=== PATIENT | female | born 1935 | race Caucasian/White ===

== ENCOUNTER 2017-07-30 03:15 | Emergency (ER) | payer OTHER ==
[~2017-07-30] VITALS: Ht 160 cm; Wt 60.0 kg
[2017-07-30 03:19] VITALS: BP 146/67; PULSE 85; RESP 16; TEMP 98.6; O2SAT 98
--- NOTE | 2017-07-30 03:38 | PD ---
HPI Chief Complaint: Syncope/Near-Syncope Time Seen by Provider: 03:29 Travel History International Travel<30 days: No Contact w/Intl Traveler<30days: No Traveled to known affect area: No History of Present Illness HPI 81-year-old female complains of laceration to the back of the head. Patient states that she got up tonight and went to the bathroom and passed out. Patient does not remember getting to the bathroom. Patient complaining of laceration to the back the head. Patient denies any visual change. Patient denies any neck pain. Patient denies shortness of breath. Patient complains of left-sided chest wall pain laterally. Patient denies abdominal pain. Patient denies any focal weakness or numbness of extremity. Patient states that she has skin abrasion to right elbow. Patient denies any elbow pain. Patient does not know her TD immunization status. PFSH Past Medical History Asthma: Yes Anxiety: Yes COPD: Yes Hypertension: Yes Renal Failure: Yes (STAGE 3) Tetanus Vaccination: Unknown Influenza Vaccination: No : 4 Para: 4 Past Surgical History Appendectomy: Yes Cholecystectomy: Yes Hysterectomy: Yes Tonsillectomy: Yes Family History Family Hypercholesterolemia: Yes Social History Alcohol Use: No Tobacco Use: No Substance Use: No Allergies-Medications (Allergen,Severity, Reaction): Coded Allergies: iodine (Verified Allergy, Unknown, Shortness of Breath, 07/30/17) Reported Meds & Prescriptions Reported Meds & Active Scripts Active Active Prescriptions or Reported Medications Unobtainable Review of Systems General / Constitutional: No: Fever Eyes: No: Visual changes HENT: No: Headaches Cardiovascular: No: Chest Pain or Discomfort Respiratory: No: Shortness of Breath Gastrointestinal: No: Abdominal Pain Genitourinary: No: Dysuria Musculoskeletal: No: Pain Skin: No Rash Neurologic: No: Weakness Psychiatric: No: Depression Endocrine: No: Polydipsia Hematologic/Lymphatic: No: Easy Bruising Physical Exam Narrative GENERAL: Well-nourished, well-developed patient. SKIN: Focused skin assessment warm/dry. HEAD: Normocephalic. Patient has 2.5 cm laceration to the occipital area of the scalp. EYES: No scleral icterus. No injection or drainage. Pupils 2 mm equal reactive. NECK: Supple, trachea midline. No JVD or lymphadenopathy. CARDIOVASCULAR: Regular rate and rhythm without murmurs, gallops, or rubs. RESPIRATORY: Breath sounds equal bilaterally. No accessory muscle use. GASTROINTESTINAL: Abdomen soft, non-tender, nondistended. MUSCULOSKELETAL: No cyanosis, or edema. Patient has abrasion lateral aspect the right elbow. No tenderness on palpation bony structure right elbow. Full range of motion the right elbow. Patient has mild tenderness on palpation left- sided chest wall laterally. No crepitus or deformity noted. BACK: Nontender without obvious deformity. No CVA tenderness. Neurologic exam: Patient is awake and alert oriented to place and person. No obvious focal neurological deficit. Data Data Last Documented VS Vital Signs Date Time Temp Pulse Resp B/P (MAP) Pulse Ox O2 Delivery O2 Flow Rate FiO2 07/30/17 05:13 07/30/17 04:53 81 16 97 Room Air 07/30/17 03:19 98.6 Orders Orders Electrocardiogram (07/30/17 03:29) Complete Blood Count With Diff (07/30/17 03:29) Basic Metabolic Panel (Bmp) (07/30/17 03:29) Prothrombin Time / Inr (Pt) (07/30/17 03:29) Act Partial Throm Time (Ptt) (07/30/17 03:29) Urinalysis - C+S If Indicated (07/30/17 03:29) Cath For Specimen (07/30/17 03:29) Chest, Single Ap (07/30/17 03:29) Ct Brain W/O Iv Contrast(Rout) (07/30/17 03:29) Iv Access Insert/Monitor (07/30/17 03:29) Ecg Monitoring (07/30/17 03:29) Oximetry (07/30/17 03:29) Labs Laboratory Tests Test 07/30/17 03:30 White Blood Count 7.4 TH/MM3 Red Blood Count 3.99 MIL/MM3 Hemoglobin 12.3 GM/DL Hematocrit 37.0 % Mean Corpuscular Volume 92.8 FL Mean Corpuscular Hemoglobin 30.8 PG Mean Corpuscular Hemoglobin Concent 33.2 % Red Cell Distribution Width 14.5 % Platelet Count 108 TH/MM3 Mean Platelet Volume 10.6 FL Neutrophils (%) (Auto) 64.4 % Lymphocytes (%) (Auto) 20.6 % Monocytes (%) (Auto) 7.8 % Eosinophils (%) (Auto) 6.9 % Basophils (%) (Auto) 0.3 % Neutrophils # (Auto) 4.8 TH/MM3 Lymphocytes # (Auto) 1.5 TH/MM3 Monocytes # (Auto) 0.6 TH/MM3 Eosinophils # (Auto) 0.5 TH/MM3 Basophils # (Auto) 0.0 TH/MM3 CBC Comment DIFF FINAL Differential Comment Prothrombin Time 10.9 SEC Prothromb Time International Ratio 1.0 RATIO Activated Partial Thromboplast Time 27.2 SEC Urine Color YELLOW Urine Turbidity HAZY Urine pH 5.0 Urine Specific [place] 1.015 Urine Protein TRACE mg/dL Urine Glucose (UA) NEG mg/dL Urine Ketones NEG mg/dL Urine Occult Blood TRACE Urine Nitrite NEG Urine Bilirubin NEG Urine Urobilinogen LESS THAN 2.0 MG/DL Urine Leukocyte Esterase NEG Urine RBC 4 /hpf Urine WBC 1 /hpf Urine Amorphous Sediment RARE Urine Hyaline Casts 3 /lpf Urine Mucus FEW /lpf Microscopic Urinalysis Comment CULT NOT INDICATED Blood Urea Nitrogen 39 MG/DL Creatinine 1.70 MG/DL Random Glucose 105 MG/DL Calcium Level 9.0 MG/DL Sodium Level 136 MEQ/L Potassium Level 4.2 MEQ/L Chloride Level 102 MEQ/L Carbon Dioxide Level 25.8 MEQ/L Anion Gap 8 MEQ/L Estimat Glomerular Filtration Rate 29 ML/MIN [facility] Medical Decision Making Medical Screen Exam Complete: Yes Emergency Medical Condition: Yes Interpretation(s) Last Impressions Head CT 07/30/17328 Signed Impressions: Service Date/Time: Sunday, July 30, 2017 03:41 - CONCLUSION: No acute intracranial abnormalities. There is scalp laceration right parietal region. Jin Pereira MD Chest X-Ray 07/30/17328 Signed Impressions: Service Date/Time: Sunday, July 30, 2017 03:46 - CONCLUSION: 1. No acute findings. Jin Pereira MD 4:54 AM. CBC within normal limit. BMP with BUN 39. Creatinine 1.7. UA negative. Differential Diagnosis Differential diagnosis including vasovagal reaction, arrhythmia, TIA, CVA, electrolyte imbalance, dehydration. Narrative Course 81-year-old female with scalp laceration and syncope. Diagnosis Primary Impression: Syncope Qualified Codes: R55 - Syncope and collapse Additional Impressions: Scalp laceration Qualified Codes: S01.01XA - Laceration without foreign body of scalp, initial encounter Chest wall contusion Qualified Codes: S20.212A - Contusion of left front wall of thorax, initial encounter Patient Instructions: General Instructions Additional Instructions: Wound care daily. Head trauma instructions given. Continue with all medications. Follow-up with personal physician. Staple removal in 7 days. Med/Other Pt SpecificInfo: No Change to Meds Scripts Tramadol (Ultram) 50 Mg Tab 50 MG PO Q6H Y for PAIN, #30 TAB 0 Refills Prov: Williams Hoskins MD 07/30/17 Disposition: 01 DISCHARGE HOME Condition: Stable Williams Hoskins MD Jul 30, 2017 03:38
--- NOTE | 2017-07-30 03:54 | RADRPT ---
EXAM DATE/TIME: 07/30/2017 03:41 [facility] COMPARISON: No previous studies available for comparison. INDICATIONS : Trauma, fall. Laceration to posterior head. RADIATION DOSE: 30.96 CTDIvol (mGy) MEDICAL HISTORY : Hypertension. Chronic obstructive pulmonary disease. Renal failure. SURGICAL HISTORY : Hysterectomy. Cholecystectomy.Appendectomy. ENCOUNTER: Initial ACUITY: 1 day PAIN SCALE: 2/10 LOCATION: cranial TECHNIQUE: Multiple contiguous axial images were obtained of the head. Using automated exposure control and adj ustment of the mA and/or kV according to patient size, radiation dose was kept as low as reasonably a chievable to obtain optimal diagnostic quality images. DICOM format image data is available electro nically for review and comparison. FINDINGS: CEREBRUM: The ventricles are normal for age. No evidence of midline shift, mass lesion, hemorrhage or acute in farction. No extra-axial fluid collections are seen. POSTERIOR FOSSA: The cerebellum and brainstem are intact. The 4th ventricle is midline. The cerebellopontine angle i s unremarkable. EXTRACRANIAL: The visualized portion of the orbits is intact. SKULL: The calvaria is intact. No evidence of skull fracture. Scalp laceration on right. CONCLUSION: No acute intracranial abnormalities. There is scalp laceration right parietal region. Jin Pereira MD on July 30, 2017 at 3:50 Board Certified Radiologist. This report was verified electronically.
[2017-07-30 03:57] LABS: AUTOMATED NEUTROPHIL # 4.8 TH/MM3 (1.8-7.7); BASOPHIL % 0.3 % (0.0-2.0); EOSINOPHIL # 0.5 TH/MM3 (0-0.4); EOSINOPHIL % 6.9 % (0.0-4.0); HEMO FLAGS DIFF FINAL; LYMPH % 20.6 % (9.0-44.0); LYMPHOCYTE # 1.5 TH/MM3 (1.0-4.8); MEAN CELL VOLUME 92.8 FL (80.0-100.0); MEAN CORPUSCULAR HEMOGLOBIN 30.8 PG (27.0-34.0); MEAN CORPUSCULAR HGB CONC 33.2 % (32.0-36.0); MONO % 7.8 % (0.0-8.0); NEUT % 64.4 % (16.0-70.0); PLATELET COUNT 108 TH/MM3 (150-450); RED BLOOD COUNT 3.99 MIL/MM3 (4.00-5.30); RED CELL DISTRIBUTION WIDTH 14.5 % (11.6-17.2); WHITE BLOOD COUNT 7.4 TH/MM3 (4.0-11.0)
[2017-07-30 04:12] LABS: BICARBONATE 25.8 MEQ/L (21.0-32.0); POTASSIUM 4.2 MEQ/L (3.5-5.1)
[2017-07-30 04:13] LABS: APTT (PATIENT) 27.2 SEC (24.3-30.1); PROTHROMBIN TIME - PATIENT 10.9 SEC (9.8-11.6)
[2017-07-30 04:22] LABS: BLOOD, URINE TRACE (NEG); COMMENT (UR) CULT NOT INDICATED; CULTURE IF INDICATED CULT NOT INDICATED; GLUCOSE,URINE NEG (NEG); HYALINE CAST, URINE 3 /lpf (RARE); KETONE, URINE NEG (NEG); MUCUS URINE FEW /lpf (OCC); NITRITE,URINE NEG (NEG); URINE COLOR YELLOW (YELLW/STRAW)
--- NOTE | 2017-07-30 04:30 | RADRPT ---
EXAM DATE/TIME: 07/30/2017 03:46 [facility] COMPARISON: No previous studies available for comparison. INDICATIONS : Chest pain post fall MEDICAL HISTORY : None. SURGICAL HISTORY : None. ENCOUNTER: Initial ACUITY: 1 day PAIN SCORE: 7/10 LOCATION: Bilateral chest FINDINGS: A single view of the chest demonstrates no pneumothorax or pleural effusion. Interstitial changes in the lungs with minimal basilar atelectasis.. Bi-apical pleural thickening. CONCLUSION: 1. No acute findings. Jin Pereira MD on July 30, 2017 at 4:27 Board Certified Radiologist. This report was verified electronically.
[2017-07-30 04:53] VITALS: BP 139/66; PULSE 81; RESP 16; O2SAT 97
--- NOTE | 2017-07-30 05:17 | PD ---
Physical Exam Time Seen by Provider: 05:16 Data Data Last Documented VS Vital Signs Date Time Temp Pulse Resp B/P (MAP) Pulse Ox O2 Delivery O2 Flow Rate FiO2 07/30/17 05:13 07/30/17 04:53 81 16 97 Room Air 07/30/17 03:19 98.6 Orders Orders Electrocardiogram (07/30/17 03:29) Complete Blood Count With Diff (07/30/17 03:29) Basic Metabolic Panel (Bmp) (07/30/17 03:29) Prothrombin Time / Inr (Pt) (07/30/17 03:29) Act Partial Throm Time (Ptt) (07/30/17 03:29) Urinalysis - C+S If Indicated (07/30/17 03:29) Cath For Specimen (07/30/17 03:29) Chest, Single Ap (07/30/17 03:29) Ct Brain W/O Iv Contrast(Rout) (07/30/17 03:29) Iv Access Insert/Monitor (07/30/17 03:29) Ecg Monitoring (07/30/17 03:29) Oximetry (07/30/17 03:29) Labs Laboratory Tests Test 07/30/17 03:30 White Blood Count 7.4 TH/MM3 Red Blood Count 3.99 MIL/MM3 Hemoglobin 12.3 GM/DL Hematocrit 37.0 % Mean Corpuscular Volume 92.8 FL Mean Corpuscular Hemoglobin 30.8 PG Mean Corpuscular Hemoglobin Concent 33.2 % Red Cell Distribution Width 14.5 % Platelet Count 108 TH/MM3 Mean Platelet Volume 10.6 FL Neutrophils (%) (Auto) 64.4 % Lymphocytes (%) (Auto) 20.6 % Monocytes (%) (Auto) 7.8 % Eosinophils (%) (Auto) 6.9 % Basophils (%) (Auto) 0.3 % Neutrophils # (Auto) 4.8 TH/MM3 Lymphocytes # (Auto) 1.5 TH/MM3 Monocytes # (Auto) 0.6 TH/MM3 Eosinophils # (Auto) 0.5 TH/MM3 Basophils # (Auto) 0.0 TH/MM3 CBC Comment DIFF FINAL Differential Comment Prothrombin Time 10.9 SEC Prothromb Time International Ratio 1.0 RATIO Activated Partial Thromboplast Time 27.2 SEC Urine Color YELLOW Urine Turbidity HAZY Urine pH 5.0 Urine Specific [place] 1.015 Urine Protein TRACE mg/dL Urine Glucose (UA) NEG mg/dL Urine Ketones NEG mg/dL Urine Occult Blood TRACE Urine Nitrite NEG Urine Bilirubin NEG Urine Urobilinogen LESS THAN 2.0 MG/DL Urine Leukocyte Esterase NEG Urine RBC 4 /hpf Urine WBC 1 /hpf Urine Amorphous Sediment RARE Urine Hyaline Casts 3 /lpf Urine Mucus FEW /lpf Microscopic Urinalysis Comment CULT NOT INDICATED Blood Urea Nitrogen 39 MG/DL Creatinine 1.70 MG/DL Random Glucose 105 MG/DL Calcium Level 9.0 MG/DL Sodium Level 136 MEQ/L Potassium Level 4.2 MEQ/L Chloride Level 102 MEQ/L Carbon Dioxide Level 25.8 MEQ/L Anion Gap 8 MEQ/L Estimat Glomerular Filtration Rate 29 ML/MIN MDM Medical Record Reviewed: Yes Supervised Visit with BIPIN: No Procedures Procedure Narrative LACERATION LOCATION: Posterior scalp LENGTH:2.5 centimeters NUMBER OF STITCHES/PIERCE: 3Staples REPAIR: The wound was copiously irrigated and explored without evidence of foreign body, tendon injury or neurovascular injury. The wound was closed using pierce. This was a single layer repair. . Patient tolerated the procedure well. Diagnosis Primary Impression: Syncope Qualified Codes: R55 - Syncope and collapse Additional Impressions: Scalp laceration Qualified Codes: S01.01XA - Laceration without foreign body of scalp, initial encounter Chest wall contusion Qualified Codes: S20.212A - Contusion of left front wall of thorax, initial encounter Patient Instructions: General Instructions, Laceration (ED), Syncope (ED), Head Injury (ED), Staple Care (ED), Rib Contusion (ED) Departure Forms: Tests/Procedures Additional Instruction: Wound care daily. Head trauma instructions given. Continue with all medications. Follow-up with personal physician. Staple removal in 7 days. Scripts Unable to Obtain Active Prescriptions or Reported Meds Disposition: DISCHARGE HOME Condition: Stable KateRuthy BROWNLEE Jul 30, 2017 05:17
[2017-07-30] MEDS ORDERED: ULTR50TA5 PO (05:24)
--- NOTE | 2017-07-30 15:28 | EKG ---
Date Performed: 07/30/2017 Time Performed: 03:20:54 PTAGE: 81 years EKG: Sinus rhythm Nonspecific ST-T wave changes NO PREVIOUS TRACING DOCTOR: Hugo Paredes Interpretating Date/Time 07/30/2017 15:27:13
== END 2017-07-30 05:32 | disposition home or self-care (01) ==
LOC: NEPC 03:15
DX: R55 Syncope and collapse (principal); S01.01XA Laceration without foreign body of scalp, initial encounter; S20.212A Contusion of left front wall of thorax, initial encounter; J44.9 Chronic obstructive pulmonary disease, unspecified; I10 Essential (primary) hypertension; W18.39XA Other fall on same level, initial encounter; Y93.01 Activity, walking, marching and hiking; Y92.002 Bathroom of unspecified non-institutional (private) residence as the place of occurrence of the external cause
CPT/HCPCS: 12001; 70450; 71010; 80048; 81001; 85025; 85610; 85730; 93005

== ENCOUNTER → 2017-10-01 | Outpatient (CLI) | payer OTHER ==
[~2017-10-01] MED LIST: TRAM50 PO
[2017-10-01 08:45] LABS: BLOOD GAS BASE EXCESS 0.5 mmol/L (-2-2); BLOOD GAS CARBOXYHEMOGLOBIN 1.6 % (0-4); BLOOD GAS HCO3 25 mmol/L (22-26); BLOOD GAS METHEMOGLOBIN 0.9 % (0-2); BLOOD GAS O2 HGB SATURATION 92 % (90-100); BLOOD GAS OXYGEN CONTENT 17.7 Vol % (12.0-20.0); BLOOD GAS PCO2 39 mmHG (38-42); BLOOD GAS PO2 73 mmHG (61-120); BLOOD GAS TOTAL HGB 13.7 G/DL (12.0-16.0); CRITICAL VALUE NO; DRAW SITE RT RADIAL; FIO2 21 %; NUMBER OF ARTERIAL PUNCTURES 1; OXYGEN DEVICE ROOM AIR; STAT NO; TEMP CORR TO 98.6; ULNAR PULSE PRESENT
--- NOTE | 2017-10-02 11:07 | RSPPFT ---
DATE OF PROCEDURE: 10/01/17 COMMENTS: Spirometry with FVC of 1.5 at 63% of predicted, FEV1 of 1.3 at 79%, FEV1/FVC ratio is normal. Flow is normal at FEF 25, FEF 75 and FEF 25-75. There is no response after bronchodilator treatment. Lung volumes show residual volume is decreased. TLC is decreased. Diffusion capacity is decreased but normal when corrected for lung volume. Flow volume loop indicates a restrictive pattern. Room air arterial blood gases show pH of 7.42, PCO2 of 30, PO2 of 70, BiCarb of 25 and O2 Saturation at 92%. IMPRESSION: 1. Mild restrictive lung disease. 2. No response after bronchodilator treatment. 3. Decreased lung volumes. 4. Decreased diffusion capacity.
== END ==
LOC: PHRSP 08:24
PROVIDERS: ATTEND Specialist
DX: R06.00 Dyspnea, unspecified (principal)
CPT/HCPCS: 36600; 82805; 94060; 94726; 94729